=== PATIENT | male | born 1945 | race Caucasian/White ===

== ENCOUNTER 2020-05-14 07:54 | Inpatient (IN) ==
--- NOTE | 2020-05-10 15:54 | Anesthesiology Consultation ---
Date of Service May 10, 2020 Assessment & Plan (1) Encounter for pre-operative examination: - Per assessment on 04/24: Travel screen negative. No known COVID-19 positive contacts or current COVID-19 related symptoms. Patient had preop COVID test (surgeon's office). Awaiting results. - Check BSG AM DOS - Cardiology office visit: 04/26/20: "No significant coronary artery disease history, without cardiopulmonary limitations and can easily complete greater than 4 METS activity without restrictions. May proceed with procedure as planned without further testing as this would not reduce his risk which is estimated at 1 to 3%. Discontinue Eliquis 48 to 72 hours prior to procedure and resume postoperatively as soon as deemed safe to do so." Chart Review Chart Review: Acceptable Risk for Surgery and Patient NOT seen in Pre Admission Testing History Surgery Operation Date: 05/14/20 09:35 Proposed Procedures p T10-T12 Decompression Fusion, L1 Removal of Screws, Spinal Cord Monitoring - Ja Mitchell DO Height/Weight Height: 5 ft 8 in Weight: 110.223 kg Allergies Allergy/AdvReac Type Severity Reaction Status Date / Time No Known Allergies Allergy Verified 04/24/20 13:14 Medications Home Medications Medication Instructions Recorded Confirmed Last Taken amiodarone 200 mg PO BID 04/24/20 04/24/20 Unknown apixaban [Eliquis] 5 mg PO BID 04/24/20 04/24/20 Unknown ascorbic acid (vitamin C) [Vitamin 1 g PO BID 04/24/20 04/24/20 Unknown C] atorvastatin 10 mg PO HS 04/24/20 04/24/20 Unknown baclofen 10 mg PO DAILY PRN 04/24/20 04/24/20 Unknown calcium carbonate-vitamin D3 1 tab PO BID 04/24/20 04/24/20 Unknown [Calcium + D] finasteride 5 mg PO QAM 04/24/20 04/24/20 Unknown furosemide 20 mg PO QAM 04/24/20 04/24/20 Unknown gabapentin 300 mg PO HS 04/24/20 04/24/20 Unknown glipizide 7.5 mg PO QAM 04/24/20 04/24/20 Unknown lisinopril 2.5 mg PO QAM 04/24/20 04/24/20 Unknown loratadine 10 mg PO QAM 04/24/20 04/24/20 Unknown metformin 1,000 mg PO BID 04/24/20 04/24/20 Unknown metoprolol succinate 50 mg PO QAM 04/24/20 04/24/20 Unknown montelukast [Singulair] 10 mg PO PM 04/24/20 04/24/20 Unknown multivitamin 1 tab PO QAM 04/24/20 04/24/20 Unknown omega 9-nqa-sls-fish oil [Fish Oil] 1 cap PO BID 04/24/20 04/24/20 Unknown tamsulosin 0.4 mg PO QAM 04/24/20 04/24/20 Unknown Past Medical History Medical History (Updated 05/10/20 @ 15:50 by Alexia Martinez) Atrial fibrillation s/p cardioversion 03/2020, on Eliquis, follows with Dr. Gallardo ([facility], [facility]), sinus rhythm per 04/09/20 EKG BPH (benign prostatic hyperplasia) Chronic back pain Degenerative disc disease Diabetes mellitus, type 2 NIDDM Hyperlipidemia Hypertension Past Surgical History Surgical History Fusion of spine lumbar x2 History of cardioversion 03/2020 History of colonoscopy History of tooth extraction History of transesophageal echocardiography (CYNTHIA) 03/2020 Social History Smoking Status: Never smoker Do You Dip or Chew Tobacco: No Hx Alcohol Use: Yes Alcohol type: beer alcohol intake frequency: a few times a month Hx Substance Use: No substance use type: does not use Testing Laboratory Results 04/09/20 WBC 7.13 H/H 16.0/46.5 PLATELETS 203 SODIUM 143 POTASSIUM 4.2 CHLORIDE 109 CO2 27 BUN 16 CREATININE 0.95 GLUCOSE 63 PT 11.0 INR 1.0 Electrocardiogram Date: 04/09/20 SR with first degree AVB at 62bpm. Low voltage QRS. No significant change compared to 06/21/2014 per surface plate inspector review. Chest X-Ray Date: 04/09/20 FINDINGS: The cardiac and mediastinal contours are normal. There is no evidence of focal pulmonary consolidation. There is no evidence of failure. No pleural effusions are visualized.[Degenerative postsurgical changes are present within the cervical spine IMPRESSION: No active disease in the chest. Echocardiogram Date: 03/20/20 Per report this CYNTHIA was performed prior to elective cardioversion. EF 55 to 60%. Mild MR. Mild TR. Mild IN. Mild LAD.
[~2020-05-14 07:54] MED LIST: ACETAMINOPHEN 500 MG TAB PO SCH; CeleBREX 200 MG CAP PO SCH; GABAPENTIN 300 MG CAP PO SCH; LR 15ML/HR IV SCH; ceFAZolin 2000MG 2,000 MG/15 ML SYR IV SCH
[2020-05-14] MEDS ORDERED: fentaNYL citrate 100 MCG/2 ML VIAL ONE ×2 (09:52→11:51)
[2020-05-14] MEDS ORDERED: MIDAZOLAM HCL 1 MG/ML 2ML VIAL ONE (09:52)
[2020-05-14] MEDS ORDERED: ONDANSETRON INJ 2 MG/ML 2 ML VIAL IV PRN ×2 (10:10→14:34)
[2020-05-14] MEDS ORDERED: ATROPINE SULFATE 0.1 MG/ML 10ML SYR IV PRN (10:10)
[2020-05-14] MEDS ORDERED: LABETALOL HCL IV 5 MG/ML 20ML IV PRN (10:10)
--- NOTE | 2020-05-14 10:15 | History & Physical Bridge Note ---
Date of Service May 14, 2020 History & Physical Bridge Note I have examined the patient, reviewed the History & Physical and in the interval since the performance of the History & Physical I have noted the following changes of clinical significance: no changes noted
--- NOTE | 2020-05-14 10:17 | History & Physical Report ---
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 After failing course of nonoperative care is here for surgical intervention. Allergies Allergy/AdvReac Type Severity Reaction Status Date / Time No Known Allergies Allergy Verified 05/14/20 08:35 Home Medications Home Medications Medication Instructions Recorded Confirmed Type amiodarone 200 mg PO BID 04/24/20 05/14/20 History apixaban [Eliquis] 5 mg PO BID 04/24/20 05/14/20 History ascorbic acid (vitamin C) [Vitamin 1 g PO BID 04/24/20 05/14/20 History C] atorvastatin 10 mg PO HS 04/24/20 05/14/20 History baclofen 10 mg PO DAILY PRN 04/24/20 05/14/20 History calcium carbonate-vitamin D3 1 tab PO BID 04/24/20 05/14/20 History [Calcium + D] finasteride 5 mg PO QAM 04/24/20 05/14/20 History furosemide 20 mg PO QAM 04/24/20 05/14/20 History gabapentin 300 mg PO HS 04/24/20 05/14/20 History glipizide 7.5 mg PO QAM 04/24/20 05/14/20 History lisinopril 2.5 mg PO QAM 04/24/20 05/14/20 History loratadine 10 mg PO QAM 04/24/20 05/14/20 History metformin 1,000 mg PO BID 04/24/20 05/14/20 History metoprolol succinate 50 mg PO QAM 04/24/20 05/14/20 History montelukast [Singulair] 10 mg PO PM 04/24/20 05/14/20 History multivitamin 1 tab PO QAM 04/24/20 05/14/20 History omega 2-dpe-sgs-fish oil [Fish Oil] 1 cap PO BID 04/24/20 05/14/20 History tamsulosin 0.4 mg PO QAM 04/24/20 05/14/20 History Past Med/Surg History Medical History (Updated 05/14/20 @ 10:16 by Ja Mitchell, DO) Atrial fibrillation s/p cardioversion 03/2020, on Eliquis, follows with Dr. Gallardo ([facility], [facility]), sinus rhythm per 04/09/20 EKG BPH (benign prostatic hyperplasia) Chronic back pain Degenerative disc disease Diabetes mellitus, type 2 NIDDM Hyperlipidemia Hypertension Surgical History Fusion of spine lumbar x2 History of cardioversion 03/2020 History of colonoscopy History of tooth extraction History of transesophageal echocardiography (CYNTHIA) 03/2020 Social History Smoking Status: Never smoker Second Hand Exposure: No; Do You Dip or Chew Tobacco: No; Tobacco Cessation Education Requested by Patient: No Hx Alcohol Use: Yes Alcohol type: beer Hx Substance Use: No Preferred Language: Martiniquais Communication Ability: Effective Dining Service Inspector Required: No Beliefs That Will Affect Care: None Current Living Situation: Spouse Other Information That Helps Us Care for You: No Feels Safe at Home: Yes Safety Concerns: Feels Safe At This Time Assistive Devices: Glasses and Hearing Aid - Bilateral Physical Exam Physical Exam: Patient is alert and oriented Heart regular in rhythm Lungs clear to auscultation Results & Data ([facility]) Vital Signs (Past 12 Hours) Vital Signs Temp Pulse Resp BP Pulse Ox 05/14/20 08:37 36.8 C 59 L 20 148/88 H 97
[2020-05-14] MEDS ORDERED: BACITRACIN INJ 50,000 UNIT VIAL ONE (10:39)
[2020-05-14] MEDS ORDERED: BUPIVACAINE/EPINEPHRINE 0.25% 1:200,000 30 ML VIAL ONE (10:39)
[2020-05-14] MEDS ORDERED: PROPOFOL IV EMULSION 10 MG/ML 20 ML VIAL IV ONE (11:31)
[2020-05-14] MEDS ORDERED: LIDOCAINE HCL 2% 2 ML VIAL/AMP(20MG/ML) INFIL ONE (11:31)
[2020-05-14] MEDS ORDERED: ONDANSETRON INJ 2 MG/ML 2 ML VIAL ONE (11:32)
[2020-05-14] MEDS ORDERED: DEXAMETHASONE SOD INJ 4 MG/ML VIAL ONE (11:32)
[2020-05-14] MEDS ORDERED: ROCURONIUM BROMIDE 10 MG/ML 5 ML VIAL IV ONE (11:32)
[2020-05-14] MEDS ORDERED: FLOSEAL HEMOSTATIC MATRIX 10ML TOP ONE (11:45)
[2020-05-14] MEDS ORDERED: NEOSTIGMINE METHYLSULFATE 1 MG/ML 10ML VIAL ONE (11:53)
[2020-05-14] MEDS ORDERED: GLYCOPYRROLATE 0.2 MG/ML VIAL ONE (11:53)
[2020-05-14] MEDS ORDERED: ePHEDrine sulfate 50 MG/ML AMP ONE (12:45)
--- NOTE | 2020-05-14 13:03 | Operative Report ---
Post Operative Report Pre & Post Diagnosis Operation Date: 05/14/20 09:35 Pre-Op Diagnosis: Other Spondylosis with Myelopathy, Thorcic Region Post-Op Diagnosis: Other Spondylosis with Myelopathy, Thorcic Region I identified the patient and participated in the time-out.: Yes Procedure Operation Date: 05/14/20 09:35 Actual T10-L2. #4 placement posterior instrumentation Procedures #1 removal of posterior instrumentation L1. #2 lumbar decompression with bilateral medial facetectomies T10 T8 11, T11-T12, T12-L1. #3 posterior spinal fusion T10-L2. #4 placement posterior instrumentation T10-T12 with barrel connectors. #5 placement locally harvested morselized autograft in the posterior gutters. #6 placement infuse collagen sponge, master graft from T10- L2. Surgeon Ja Mitchell, DO School Photographs Detailer Elma Ignacio Estimated Blood Loss 300 Findings See Below The patient is 5 foot 8 inches tall weighing over 108 kg with a BMI in excess of 36. Patient's body habitus did add significant technical difficulty adding at least 50% increase to the operative time. Specimens None Indications This is a 74-year-old male who presents with progressive thoracic myelopathy and is here for the above-mentioned procedure. Description of Procedure Patient was met with identified informed consent obtained. Patient was then taken to the operative suite underwent an patient placed in the prone position the Ramy table atop the Delio frame. All bony prominences well-padded eyes inspected to ensure no external pressure placed upon the. This point the thoracolumbar spine was prepped and draped in normal sterile fashion. Sharp dissection with the assistance of Bovie cautery was performed down to and exposing the lamina and transverse processes of [id number] L1 and L2 bilaterally. Then proceeded move the connector and pedicle screw of L1. Then performed a laminectomy bilateral medial facetectomies of T10-T11 T10-11 T12 and T12-L1. This address significant stenosis. Pedicle screws were then placed in [id number] the proper sized gautam placed connected with barrel connectors to the existing gautam. The transverse processes of T10-L2 were then burred to subcortical bleeding bone. Infuse collagen sponge and master graft local autograft was then placed in the posterior gutters. 15 round JOE drain inserted. Incision was closed with 1 Vicryl the fascia 2-0 Vicryl subcutaneously and 4 Monocryl for final skin closure. Steri-Strips dressings placed. Patient waken taken to PACU stable condition. Please note spinal cord monitoring was last that the procedure no changes noted. Yolanda Ignacio was present for the entire surgery involved the patient positioning complex portions of the surgery and final skin closure. I attest to the content of the Intraoperative Record and any orders documented therein. Any exceptions are noted below.
--- NOTE | 2020-05-14 13:24 | Fluoroscopy Report ---
FL thoracic spine 2V CLINICAL HISTORY: T10-T12 DECOMPRESSION/FUSION COMPARISON STUDY: None. FLUOROSCOPY TIME: 35 seconds. FINDINGS: 2 fluoroscopic spot images of the thoracolumbar spine. T10-T12 posterior decompression fusi on with pedicle screws and rods. These are attached the existing lumbar spinal fusion rods. The hardw are appears intact. IMPRESSION: Fluoroscopy provided for T10-T12 posterior decompression and fusion. ACT 112: Negative or not required by law. Electronically signed by: Calin Covarrubias M.D. 05/14/2020 1:23 PM
[2020-05-14] MEDS: HYDROmorphone INJ 1 MG/ML SYRINGE IV PRN ×4 (13:32→13:47)
--- NOTE | 2020-05-14 13:59 | Anesthesiology Progress Note ---
Date of Service May 14, 2020 Anesthesia Post Procedure Vital Signs Vital Signs: Temp Pulse Pulse Resp BP BP Pulse Ox 05/14/20 13:50 36.4 C L 63 16 101/71 98 05/14/20 13:40 65 14 117/56 L 97 05/14/20 13:30 71 16 136/74 98 05/14/20 13:22 36.2 C L 69 14 160/85 H 98 05/14/20 08:37 36.8 C 59 L 20 148/88 H 97 Pain Intensity Right: Pain Intensity: 2 Back: Pain Intensity: 2 Transfer of Care Handoff Completed per policy Notes Mental Status: alert / awake / arousable Patient Amnestic to Procedure: Yes Nausea / Vomiting: adequately controlled Pain: adequately controlled Airway Patency, RR, SpO2: stable & adequate BP & HR: stable & adequate Hydration State: stable & adequate Anesthetic Complications: no major complications apparent
[2020-05-14] MEDS ORDERED: diphenhydrAMINE Capsule 25 MG CAP PO PRN (14:34)
[2020-05-14] MEDS ORDERED: METOCLOPRAMIDE HCL INJ 5 MG/ML 2 ML VIAL IV PRN (14:34)
[2020-05-14] MEDS ORDERED: ALUMINUM/MAGNESIUM SUSP 30 ML UDC PO PRN (14:34)
[2020-05-14] MEDS ORDERED: HYDROmorphone INJ 1 MG/ML SYRINGE IV PRN (14:34)
[2020-05-14] MEDS ORDERED: ACETAMINOPHEN 500 MG TAB PO PRN (14:34)
[2020-05-14] MEDS ORDERED: NALOXONE HCL 0.4 MG/1 ML VIAL/CARP IV PRN (14:34)
[2020-05-14] MEDS ORDERED: LORazepam 0.5 MG TAB PO PRN (14:34)
[2020-05-14] MEDS ORDERED: MAGNESIUM HYDROXIDE SUSP 30 ML UDC PO PRN (14:34)
[2020-05-14] MEDS ORDERED: hydrOXYzine HCl 25 MG TAB PO PRN (14:34)
[2020-05-14] MEDS ORDERED: PROMETHAZINE HCL 12.5 MG in SODIUM CHLORIDE 0.9% 50 ML IV PRN (14:34)
[2020-05-14] MEDS ORDERED: LORazepam 0.5 MG/1 ML VIAL IV PRN (14:34)
[2020-05-14] MEDS ORDERED: DO NOT ADMINISTER PNEUMOCOCCAL VACCINE PRN (14:34)
[2020-05-14] MEDS ORDERED: DO NOT ADMINISTER FLU VACCINE PRN (14:34)
[2020-05-14] MEDS ORDERED: ACETAMINOPHEN 1,000 MG/100 ML VIAL IV PRN (14:34)
[2020-05-14] MEDS ORDERED: bisacodyL 10 MG SUPP PR PRN (14:34)
[2020-05-14] MEDS ORDERED: HYDROmorphone INJ 0.5 MG/0.5 ML SYR IV PRN (14:34)
[2020-05-14] MEDS ORDERED: ONDANSETRON 4 MG OD TAB PO PRN (14:34)
[2020-05-14] MEDS ORDERED: traMADol HCL 50 MG TABLET PO PRN (14:34)
[2020-05-14] MEDS ORDERED: SOD PHOSPHATE/SOD BIPHOSPHATE ENEMA 132 ML BTL PR PRN (14:34)
[2020-05-14] MEDS ORDERED: BACLOFEN 10 MG TAB PO PRN (14:34)
[2020-05-14] MEDS ORDERED: FAMOTIDINE 20 MG TAB PO PRN (14:34)
[2020-05-14] MEDS: SODIUM CHLORIDE 0.9% 1000ML 1,000 ML IV SCH ×2 (14:42→21:57)
[2020-05-14] MEDS ORDERED: PHARMACY GLYCEMIC MGMT CONSULT PRN (14:44)
[2020-05-14] MEDS ORDERED: NovoLIN-N (NPH) PER UNIT CHARGE SQ ONE (15:00)
--- NOTE | 2020-05-14 15:00 | Pharmacy Report ---
Glycemic Control Consultation - Date of Service May 14, 2020 - Scope Scope: Glycemic Pharmacist consulted for glycemic control and to write orders per [facility] inpatient glycemic control protocol. - Objective Weight: 108.4 kg Accuchecks BSG (last 24hrs): 05/14/20 05/14/20 08:27 13:26 POC Glucose 150 H 164 H - Recent Pertinent Medications Outpatient Anti-diabetic Regimen: * Metformin 1000 mg PO BIDM + Glipizide 7.5 mg PO qAM * A1c = pending Risk Factors for Insulin Resistance: * Steroids: * Dexamethasone 8 mg IV x 1 * Recent Surgery: * POD #0 * Diet: * T2DM - Assessment & Plan Assessment & Plan: ASSESSMENT: * 74 yo M admitted s/p T10-T12 decompression and fusion. Pharmacy is consulted for inpatient glycemic management. No HbA1c on file for patient. I have ordered one for tomorrow morning to assess his outpatient control of T2DM on Metformin and Glipizide. * Preoperative BSG was 150 mg/dL. Postoperative BSG was 164 mg/dL. * Patient did receive a one time dose of dexamethasone intra-operative. This will likely cause post-prandial hyperglycemia over the next 24 hours. * Will give a one time dose of NPH 25 units right now (0.25 units/kg) * Will start patient on Novolog based on a weight and stress of 2. PLAN FOR INPATIENT GLYCEMIC CONTROL: * Holding outpatient oral diabetes medications * Basal insulin * NPH 25 units SQ x 1 (0.25 units/kg) * Bolus insulin * NovoLog per scale ACHS or Q6hrs while NPO * Goal Range: Low 110 mg/dL - High 140 mg/dL * Correction Factor: 20 mg/dL/unit * Nutritional / Prandial insulin per carb ratio of 1 unit per 7 grams CHO consumed * Please note that the plan above was derived based on current level of insulin resistance and hospital stress. These recommendations are appropriate for inpatient admission only. Plan of care upon discharge will need to be reassessed to avoid potential outpatient hypo/hyperglycemia. Thank you.
[2020-05-14] MEDS: oxyCODONE HCL IR 5 MG TAB (IMMEDIATE RELEASE) PO PRN (15:53)
[2020-05-14] MEDS ORDERED: GLUCOSE 10 TABS/TUBE PO PRN (16:09)
[2020-05-14] MEDS ORDERED: GLUCAGON FOR INJ 1 MG VIAL SQ PRN (16:09)
[2020-05-14] MEDS ORDERED: CARBOHYDRATES FOR HYPOGLYCEMIA PO PRN (16:09)
[2020-05-14] MEDS ORDERED: DEXTROSE 50% 50 ML SYRINGE IV PRN (16:09)
[2020-05-14] MEDS ORDERED: GLUCOSE 40% GEL 15 GM TUBE PO PRN (16:09)
--- NOTE | 2020-05-14 16:14 | Consultation ---
Date of Consultation May 14, 2020 Assessment & Plan (1) Myelopathy concurrent with and due to spinal stenosis of thoracic region: Status post T10-[address] Mitchell, POD #0 EBL 300 mL, JOE drain to 240 mL Patient tolerated procedure well Pain/wound management per Ortho Activity and therapy as directed by Ortho Encourage incentive spirometry, maintaining oxygen saturations on room air Monitor H&H (2) Atrial fibrillation: Status post cardioversion, maintained sinus rhythm Continue amiodarone Resume Eliquis at the discretion of Dr. Mitchell when hemostasis achieved (3) Diabetes mellitus, type 2: Unknown A1c, obtain in a.m. Glycemic pharmacy on board Appreciate their management (4) Hypertension: Blood pressure stable Continue metoprolol and lisinopril with parameters Hold Lasix until volume status blood pressure reassessed in a.m. -patient states he takes for lower extremity edema, denies history of CHF (5) Hyperlipidemia: Continue statin (6) BPH (benign prostatic hyperplasia): Continue finasteride and Flomax Verma catheter in place, removed per surgery (7) DVT prophylaxis: SCD/teds Disposition: Per primary Follow-up: PCP Dr. Ramos upon discharge Pt was seen and examined in collaboration with Dr. Mcfarland, please see addendum Starting 05/15/2020 pt will be under the care of Dr. Cole Thank you for this consultation. We will follow the patient with you during their hospital stay. You can reach a [facility] via pager @ [phone]. Supervising Physician Co-Signing Physician Notes Attending Addendum: care coordinated with ALONZO Ivey please refer to her notes for full details, I agree with her notes patient seen and examined, records reviewed by myself as well on exam, patient seen resting in bed, comfortable, watching TV States he feels fine overall, minimal pain in the surgical site Denies headache, dizziness, chest pain, shortness of breath, palpitations, dizziness no other symptoms VS noted and reviewed oriented x 3, not in distress, speaks in sentences with no effort nor accessory muscle use normal rate, regular rhythm, no murmurs clear breath sounds bilaterally non distended, soft, nontender no bipedal edema, erythema, warmth no neuro deficits ASSESSMENT AND PLAN Status post lumbar decompression surgery Patient stable overall Resume Eliquis per Dr. Mitchell once hemostasis is stable Atrial fibrillation Continue amiodarone Resume Eliquis per Dr. Mitchell Hypertension Stable Continue metoprolol and lisinopril Hold Lasix other diagnoses and plan of care as per ALONZO Ibarra's notes Laron Mcfarland MD History of Present Illness Requesting Physician: Dr. Mitchell. Reason for Consultation: Postop medical management Attending Physician: Ja Mitchell, DO History of Present Illness This is a 74-year-old male who has significant past medical history of T2DM, atrial fibrillation anticoagulated on Eliquis, HTN, HLD, BPH who presents for elective thoracic procedure by Dr. Mitchell. He underwent T10-12 decomp/fusion and tolerated the procedure well. He is from [facility] and follows with Marysol Ramos. He has significant past medical history of atrial fibrillation status post cardioversion. He remains in normal sinus rhythm with amiodarone. He is anticoagulated with Eliquis, but this has been on hold for the past 3 days. He also has history of T2DM that is controlled with oral hypoglycemics. No A1C is available for review. Currently post op he feels well. He denies fever, chills, sweats, lightheadedness, dizziness, chest pain, shortness breath, nausea vomiting, abd pain. He has Verma cath currently in place. We discussed and confirmed medications. He states he takes lasix for lower ext swelling, but denies hx of CHF. Allergies Allergy/AdvReac Type Severity Reaction Status Date / Time No Known Allergies Allergy Verified 05/14/20 08:35 Home Medications Home Medications Medication Instructions Recorded Confirmed Type amiodarone 200 mg PO BID 04/24/20 05/14/20 History apixaban [Eliquis] 5 mg PO BID 04/24/20 05/14/20 History ascorbic acid (vitamin C) [Vitamin 1 g PO BID 04/24/20 05/14/20 History C] atorvastatin 10 mg PO HS 04/24/20 05/14/20 History baclofen 10 mg PO DAILY PRN 04/24/20 05/14/20 History calcium carbonate-vitamin D3 1 tab PO BID 04/24/20 05/14/20 History [Calcium + D] finasteride 5 mg PO QAM 04/24/20 05/14/20 History furosemide 20 mg PO QAM 04/24/20 05/14/20 History gabapentin 300 mg PO HS 04/24/20 05/14/20 History glipizide 7.5 mg PO QAM 04/24/20 05/14/20 History lisinopril 2.5 mg PO QAM 04/24/20 05/14/20 History loratadine 10 mg PO QAM 04/24/20 05/14/20 History metformin 1,000 mg PO BID 04/24/20 05/14/20 History metoprolol succinate 50 mg PO QAM 04/24/20 05/14/20 History montelukast [Singulair] 10 mg PO PM 04/24/20 05/14/20 History multivitamin 1 tab PO QAM 04/24/20 05/14/20 History omega 0-dfd-skj-fish oil [Fish Oil] 1 cap PO BID 04/24/20 05/14/20 History tamsulosin 0.4 mg PO QAM 04/24/20 05/14/20 History Patient History Medical History (Updated 05/14/20 @ 16:35 by Debbie Hernandez PA-C) Atrial fibrillation s/p cardioversion 03/2020, on Eliqu, follows with Dr. Gallardo ([facility], [facility]), sinus rhythm per 04/09/20 EKG BPH (benign prostatic hyperplasia) Chronic back pain Degenerative disc disease Diabetes mellitus, type 2 NIDDM Hyperlipidemia Hypertension Surgical History Fusion of spine lumbar x2 History of cardioversion 03/2020 History of colonoscopy History of tooth extraction History of transesophageal echocardiography (CYNTHIA) 03/2020 Family History Father Pacemaker Mother Cancer Social History (Updated 05/14/20 @ 16:28 by Debbie Hernandez PA-C) Smoking Status: Never smoker Second Hand Exposure: No; Do You Dip or Chew Tobacco: No; Tobacco Cessation Education Requested by Patient: No Hx Alcohol Use: No Hx Substance Use: No Preferred Language: Spanish Communication Ability: Effective 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: No Beliefs That Will Affect Care: None Current Living Situation: Spouse Other Information That Helps Us Care for You: No Feels Safe at Home: Yes Safety Concerns: Feels Safe At This Time Assistive Devices: Glasses and Hearing Aid - Bilateral Review of Systems Review of Systems: All systems reviewed & are unremarkable except as noted in HPI & below Physical Exam Physical Exam: Constitutional: WD/WN, vitals as above, NAD, sitting up in bed, pleasant, conversing easily Head: Normocephalic, Atraumatic Eyes: PERRL, conjunctivae normal, anicteric sclerae ENMT: external ear and nose normal, oropharynx normal Neck: trachea midline, no thyromegaly normal visual inspection Respiratory: normal respiratory effort, lungs clear to auscultation, no wheeze, rales, rhonchi. Normal insp/exp effort, no accessory muscle use Cardiovascular: RRR, no murmur, trace pedal edema Vessels: no JVD or carotid bruit Chest: normal inspection of chest Abdomen: protuberant abd, normal bowel sounds, soft, nontender, no hepatosplenomegaly Musculoskeletal: no cyanosis or clubbing, active ROM x 4, lumbar dressing CDI with JOE drain intact with sersang drainage Skin: no rashes, warm and dry normal turgor Neurologic: PERRL, EOMI, accommodation nl, no face palsy, no dysarthria CN's II-XI intact bilaterally and moves all extremities Psychiatric: A+Ox3, euthymic affect Lymphatic: no cervical or axillary lymphadenopathy : +verma cath draining yellow urine Results & Data ([facility]) Vital Signs (Past 12 Hours) Vital Signs Temp Pulse Pulse Resp BP BP Pulse Ox 05/14/20 15:30 36.5 C 61 17 110/66 95 05/14/20 14:21 36.5 C 59 L 16 114/71 96 05/14/20 14:00 61 17 117/75 96 05/14/20 13:50 36.4 C L 63 16 101/71 98 05/14/20 13:40 65 14 117/56 L 97 05/14/20 13:30 71 16 136/74 98 05/14/20 13:22 36.2 C L 69 14 160/85 H 98 05/14/20 08:37 36.8 C 59 L 20 148/88 H 97 Laboratory Results pre op labs 04/09 H&H 16.0 from 6.5, platelet 203, BUN 16, creatinine 0.95 Diagnostic Findings Thoracic Spine Xray: IMPRESSION: Fluoroscopy provided for T10-T12 posterior decompression and fusion. CXR: IMPRESSION: No active disease in the chest Medications Administered Acetaminophen (Acetaminophen 500 Mg Tab) 1,000 mg PO PREOP MUNDO Stop: 05/14/20 18:00 Last Admin: 05/14/20 08:50 Dose: 1,000 mg Documented by: [id number] Celecoxib (Celebrex 200 Mg Cap) 200 mg PO PREOP MUNDO Stop: 05/14/20 18:00 Last Admin: 05/14/20 08:50 Dose: 200 mg Documented by: [id number] Gabapentin (Gabapentin 300 Mg Cap) 300 mg PO PREOP MUNDO Stop: 05/14/20 18:00 Last Admin: 05/14/20 08:50 Dose: 300 mg Documented by: [id number] Cefazolin Sodium (Ancef 2000mg) 2,000 mg in 15 mls @ 3.75 mls/min IV PREOP MUNDO; Protocol Stop: 05/14/20 18:00 Last Admin: 05/14/20 10:53 Dose: 3.75 mls/min Documented by: [id number] Lactated Ringer's (Lr) 1,000 mls @ 15 mls/hr IV .Q24H MUNDO Stop: 05/15/20 05:59 Last Infusion: 05/14/20 10:53 Dose: 0 mls/hr Documented by: [id number] Admin: 05/14/20 08:50 Dose: 15 mls/hr Documented by: [id number] Sodium Chloride (Nss 1000ml) 1,000 mls @ 150 mls/hr IV .Q6H40M MUNDO Stop: 06/13/20 14:33 Last Admin: 05/14/20 14:42 Dose: 150 mls/hr Documented by: [id number] Oxycodone HCl (Oxycodone Hcl Ir 5 Mg Tab (Immediate Release)) 5 - 10 mg PO Q4H PRN PRN Reason: Moderate-Severe Pain & Pre PT Stop: 05/28/20 14:33 Last Admin: 05/14/20 15:53 Dose: 10 mg Documented by: [id number] Discontinued Medications Bacitracin (Bacitracin Inj 50,000 Unit Vial) Confirm Administered Dose 50,000 units .ROUTE .STK-MED ONE Stop: 05/14/20 10:40 Last Admin: 05/14/20 12:56 Dose: 50,000 units Documented by: [id number] Bupivacaine HCl/Epinephrine Bitart (Bupivacaine/Epinephrine 0.25% 1:200,000 30 Ml Vial) Confirm Administered Dose 30 ml .ROUTE .STK-MED ONE Stop: 05/14/20 10:40 Last Admin: 05/14/20 12:56 Dose: 30 ml Documented by: [id number] Hydromorphone HCl (Hydromorphone Inj 1 Mg/Ml Syringe) 0.25 mg IV Q5M PRN PRN Reason: PACU Use Only-Pain Stop: 05/14/20 18:10 Last Admin: 05/14/20 13:47 Dose: 0.25 mg Documented by: [id number] Admin: 05/14/20 13:42 Dose: 0.25 mg Documented by: [id number] Admin: 05/14/20 13:37 Dose: 0.25 mg Documented by: [id number] Admin: 05/14/20 13:32 Dose: 0.25 mg Documented by: [id number] Insulin Human NPH (Novolin-N (Nph) Per Unit Charge) 25 units SQ ONE ONE; Protocol Stop: 05/14/20 15:01 Last Admin: 05/14/20 16:02 Dose: 25 units Documented by: [id number] Cosigned by: [id number] Miscellaneous ( Floseal Hemostatic Matrix 10ml) 30 ml TOP ONCE ONE Stop: 05/14/20 11:46 Last Admin: 05/14/20 12:56 Dose: 24 ml Documented by: [id number] ECG Rate (beats per minute): 62 Rhythm: normal sinus Findings: + 1st degree AV block
[2020-05-14] MEDS: ceFAZolin 2000MG 2,000 MG/15 ML SYR IV SCH (17:36)
[2020-05-14] MEDS: INSULIN ASPART 100 UNITS/ML 3 ML PEN SC SCH ×2 (18:32→20:39)
[2020-05-14] MEDS: GABAPENTIN 300 MG CAP PO SCH (20:26)
[2020-05-14] MEDS: AMIODARONE 200 MG TAB PO SCH (20:26)
[2020-05-14] MEDS: ASCORBIC ACID 500 MG TAB PO SCH (20:27)
[2020-05-14] MEDS: ATORVASTATIN 10 MG TAB PO SCH (20:27)
[2020-05-14] MEDS: DOCUSATE SODIUM/SENNA 50/8.6MG TAB PO SCH (20:27)
[2020-05-14] MEDS: CALCIUM 600MG + VIT D 400 IU TAB PO SCH (20:27)
[2020-05-14] MEDS: MONTELUKAST SODIUM 10 MG TABLET PO SCH (20:27)
[2020-05-15] MEDS: ceFAZolin 2000MG 2,000 MG/15 ML SYR IV SCH (02:23)
[2020-05-15] MEDS: SODIUM CHLORIDE 0.9% 1000ML 1,000 ML IV SCH (05:17)
[2020-05-15] MEDS: POLYETHYLENE (MIRALAX) 17 GM PACK PO SCH ×3 (05:52→17:34)
[2020-05-15] MEDS: oxyCODONE HCL IR 5 MG TAB (IMMEDIATE RELEASE) PO PRN ×2 (05:52→14:49)
[2020-05-15 07:09] LABS: Basophils # (auto) 0.01 K/uL (0-0.2); Basophils % (auto) 0.1 %; Hematocrit (blood only) 38.4 % (42-52); Hemoglobin 13.2 g/dL (14.0-18.0); Immature Granulocytes # (auto) 0.07 K/uL (0.00-0.02); Immature Granulocytes % (auto) 0.4 %; Lymphocytes # (auto) 1.31 K/uL (1.2-3.4); Lymphocytes % (auto) 8.2 %; Mean Corpuscular Hemoglobin 32.4 pg (25-34); Mean Corpuscular Hgb Conc 34.4 g/dL (32-36); Mean Corpuscular Volume 94.3 fL (80-100); Mean Platelet Volume 10.9 fL (7.4-10.4); Monocytes # (auto) 1.12 K/uL (0.11-0.59); Neutrophils # (auto) 13.39 K/uL (1.4-6.5); Neutrophils % (auto) 84.3 %; Platelet Count 178 K/uL (130-400); RDW Coefficient of Variation 12.9 % (11.5-14.5); RDW Standard Deviation 44.4 fL (36.4-46.3); Red Blood Count 4.07 M/uL (4.7-6.1)
[2020-05-15 07:18] LABS: Estimated Average Glucose 154 mg/dl
[2020-05-15 07:41] LABS: BUN Creatinine Ratio 16.2 (10-20); Calcium 8.1 mg/dl (8.5-10.1); Creatinine Clr Calc Pharmacy 64.9 ml/min; Est GFR (African American) 68.4; Potassium 4.7 mmol/L (3.5-5.1)
[2020-05-15] MEDS: CALCIUM 600MG + VIT D 400 IU TAB PO SCH ×2 (08:11→20:46)
[2020-05-15] MEDS: METOPROLOL SUCC 50MG EXT REL TAB PO SCH (08:11)
[2020-05-15] MEDS: FINASTERIDE 5 MG TAB PO SCH (08:11)
[2020-05-15] MEDS: LORATADINE 10 MG TAB PO SCH (08:11)
[2020-05-15] MEDS: MULTIVITAMIN TAB PO SCH (08:11)
[2020-05-15] MEDS: ASCORBIC ACID 500 MG TAB PO SCH ×2 (08:11→20:46)
[2020-05-15] MEDS: AMIODARONE 200 MG TAB PO SCH ×2 (08:11→20:46)
[2020-05-15] MEDS: lisinopril 2.5 MG TAB PO SCH (08:11)
[2020-05-15] MEDS: TAMSULOSIN HCL 0.4 MG CAP PO SCH (08:11)
--- NOTE | 2020-05-15 08:35 | Hospitalist Progress Note ---
Date of Service May 15, 2020 Assessment & Plan (1) Myelopathy concurrent with and due to spinal stenosis of thoracic region: Status post T10-[address] Mitchell, POD #1 EBL 300 mL, JOE drain to 560 mL Patient tolerated procedure well Pain/wound management per Ortho Activity and therapy as directed by Ortho Encourage incentive spirometry, maintaining oxygen saturations on room air Monitor H&H and renal function ( baseline ccr 0.9-1, cr 1.21 today) (2) Anemia: H&H 13.2 and 38.4 today Preoperative 16 Likely dilutional component as well as acute blood loss (3) Atrial fibrillation: Status post cardioversion, maintained sinus rhythm Continue amiodarone Resume Eliquis at the discretion of Dr. Mitchell when hemostasis achieved (4) Diabetes mellitus, type 2: A1C 7.0 Glycemic pharmacy on board Appreciate their management continue insulin (5) Hypertension: Blood pressure on low side this morning Continue metoprolol and lisinopril with parameters continue to hold lasix, assess volume status daily and resume when able patient states he takes for lower extremity edema, denies history of CHF, currently no edema (6) Hyperlipidemia: Continue statin (7) BPH (benign prostatic hyperplasia): Continue finasteride and Flomax Hook removed - having bloody drainage from tip of penis likely 2/2 to trauma from removal - monitor (8) DVT prophylaxis: SCD/teds Disposition: Per primary Follow-up: PCP Dr. Ramos upon discharge Pt was seen and examined in collaboration with Dr. Cole, please see addendum Thank you for this consultation. We will follow the patient with you during their hospital stay. You can reach a member of the [facility]ist Team 09/02 via pager @ [phone]. Admission and Anticipated Discharge Date Admission Date: May 14, 2020 Supervising Physician Co-Signing Physician Notes Pt was seen and examined. Agreed with Debbie ALEXANDER exam, assessment and plan. 74-year-old male who has significant past medical history of T2DM, atrial fibrillation anticoagulated on Eliquis, HTN, HLD, BPHwho presents for elective thoracic procedure by Dr. Mitchell after failed conservative management. S/P day#1 T10-12 decompression/fusion and tolerated the procedure well. No postop complication. Hemoglobin 13.6 today. Continue incentive spirometry. Continue physical and occupational therapy. Fall precaution. Continue monitor closely. MD Douglas Subjective Patient was seen and examined in room 311. Follow-up postop thoracic spine surgery. POD #1. He had Hook catheter removed this morning. Once catheter removed he did have some blood coming from tip of penis. "It all gushed out at once." Nurse at bedside placed Brief. Denies similar issues in past. Nursing felt likely secondary to trauma with withdrawal of catheter. He otherwise feels well this morning. He denies any fever, chills, sweats, lightheadedness, dizziness, chest pain, shortness of breath, nausea, vomiting, abdominal pain. He has not yet passed flatus. He is tolerating diet. Review of Systems Review of Systems: All systems reviewed & are unremarkable except as noted in HPI & below Physical Exam Physical Exam: Gen: WD/WN, male, NAD, A&O x3 HEENT: Normocephalic, atraumatic, conjunctivae moist, sclerae anicteric, mucous membranes moist. Lung: Clear to Auscultation bilaterally, no wheezes/rales/rhonchi Heart: Regular rate, regular rhythm, no murmurs, rubs, or gallops Abdomen: Soft, NT, ND +BS x 4 Extremities: No edema, lumbar dressing CDI, JOE drain with serosanguineous drainage Skin: Warm, no rash, negative turgor. Results & Data Results & Data ([facility]) Vital Signs (Past 12 Hours) Vital Signs Temp Pulse Resp BP Pulse Ox 05/15/20 07:19 37.1 C 76 18 106/71 98 05/15/20 04:21 37.3 C 83 20 98/64 L 94 05/14/20 23:00 37 C 79 20 99/66 L 94 05/14/20 20:30 72 128/72 Laboratory Results Short CBC 05/15/20 05/15/20 Range/Units 06:47 06:47 WBC 15.90 H (4.8-10.8) K/uL Hgb 13.2 L (14.0-18.0) g/dL Hct 38.4 L (42-52) % Plt Count 178 (130-400) K/uL Creatinine 1.21 (0.6-1.4) mg/dl BMP 05/15/20 06:47 Sodium 138 Potassium 4.7 Chloride 109 H Carbon Dioxide 27 BUN 20 H Creatinine 1.21 Glucose 224 H Calcium 8.1 L Medications Administered Amiodarone HCl (Amiodarone 200 Mg Tab) 200 mg PO BID [facility] Stop: 06/13/20 20:59 Last Admin: 05/15/20 08:11 Dose: 200 mg Documented by: [id number] Admin: 05/14/20 20:26 Dose: 200 mg Documented by: [id number] Ascorbic Acid (Ascorbic Acid 500 Mg Tab) 1,000 mg PO BID [facility] Stop: 06/13/20 20:59 Last Admin: 05/15/20 08:11 Dose: 1,000 mg Documented by: [id number] Admin: 05/14/20 20:27 Dose: 1,000 mg Documented by: [id number] Atorvastatin Calcium (Atorvastatin 10 Mg Tab) 10 mg PO HS [facility] Stop: 06/13/20 20:59 Last Admin: 05/14/20 20:27 Dose: 10 mg Documented by: [id number] Finasteride (Finasteride 5 Mg Tab) 5 mg PO QAM [facility] Stop: 06/14/20 08:59 Last Admin: 05/15/20 08:11 Dose: 5 mg Documented by: [id number] Gabapentin (Gabapentin 300 Mg Cap) [address] [facility] Stop: 06/13/20 20:59 Last Admin: 05/14/20 20:26 Dose: 300 mg Documented by: [id number] Hydromorphone HCl (Hydromorphone Inj 1 Mg/Ml Syringe) 1 mg IV Q3H PRN PRN Reason: severe pain (scale 7-10) Stop: 05/28/20 14:33 Last Admin: 05/14/20 18:44 Dose: 1 mg Documented by: [id number] Insulin Aspart (Insulin Aspart 100 Units/Ml 3 Ml Pen) 0 units SC ACHS [facility] Stop: 06/13/20 16:29 Last Admin: 05/14/20 20:39 Dose: 7 units Documented by: [id number] Cosigned by: [id number] Admin: 05/14/20 18:32 Dose: 10 units Documented by: [id number] Cosigned by: [id number] Lisinopril (Lisinopril 2.5 Mg Tab) 2.5 mg PO QAM [facility] Stop: 06/14/20 08:59 Last Admin: 05/15/20 08:11 Dose: 2.5 mg Documented by: [id number] Loratadine (Loratadine 10 Mg Tab) 10 mg PO QAM [facility] Stop: 06/14/20 08:59 Last Admin: 05/15/20 08:11 Dose: 10 mg Documented by: [id number] Metoprolol Succinate (Metoprolol Succ 50mg Ext Rel Tab) 50 mg PO QAM [facility] Stop: 06/14/20 08:59 Last Admin: 05/15/20 08:11 Dose: 50 mg Documented by: [id number] Montelukast Sodium (Montelukast Sodium 10 Mg Tablet) 10 mg PO PM [facility] Stop: 06/13/20 20:59 Last Admin: 05/14/20 20:27 Dose: 10 mg Documented by: [id number] Multivitamins (Multivitamin Tab) 1 tab PO QAM [facility] Stop: 06/14/20 08:59 Last Admin: 05/15/20 08:11 Dose: 1 tab Documented by: [id number] Multivitamins/Minerals (Calcium 600mg + Vit D 400 Iu Tab) 1 tab PO BID [facility] Stop: 06/13/20 20:59 Last Admin: 05/15/20 08:11 Dose: 1 tab Documented by: [id number] Admin: 05/14/20 20:27 Dose: 1 tab Documented by: [id number] Oxycodone HCl (Oxycodone Hcl Ir 5 Mg Tab (Immediate Release)) 5 - 10 mg PO Q4H PRN PRN Reason: Moderate-Severe Pain & Pre PT Stop: 05/28/20 14:33 Last Admin: 05/15/20 05:52 Dose: 10 mg Documented by: [id number] Admin: 05/14/20 15:53 Dose: 10 mg Documented by: [id number] Polyethylene Glycol (Polyethylene (Miralax) 17 Gm Pack) 17 gm PO Q6 [facility] Stop: 06/14/20 05:59 Last Admin: 05/15/20 05:52 Dose: 17 gm Documented by: [id number] Senna/Docusate Sodium (Docusate Sodium/Senna 50/8.6mg Tab) 2 tab PO HS [facility] Stop: 06/13/20 20:59 Last Admin: 05/14/20 20:27 Dose: 2 tab Documented by: [id number] Tamsulosin HCl (Tamsulosin Hcl 0.4 Mg Cap) 0.4 mg PO QAM [facility] Stop: 06/14/20 08:59 Last Admin: 05/15/20 08:11 Dose: 0.4 mg Documented by: [id number] Discontinued Medications Acetaminophen (Acetaminophen 500 Mg Tab) 1,000 mg PO PREOP [facility]UNDO Stop: 05/14/20 18:00 Last Admin: 05/14/20 08:50 Dose: 1,000 mg Documented by: [id number] Bacitracin (Bacitracin Inj 50,000 Unit Vial) Confirm Administered Dose 50,000 units .ROUTE .STK-MED ONE Stop: 05/14/20 10:40 Last Admin: 05/14/20 12:56 Dose: 50,000 units Documented by: [id number] Bupivacaine HCl/Epinephrine Bitart (Bupivacaine/Epinephrine 0.25% 1:200,000 30 Ml Vial) Confirm Administered Dose 30 ml .ROUTE .STK-MED ONE Stop: 05/14/20 10:40 Last Admin: 05/14/20 12:56 Dose: 30 ml Documented by: [id number] Celecoxib (Celebrex 200 Mg Cap) 200 mg PO PREOP MUNDO Stop: 05/14/20 18:00 Last Admin: 05/14/20 08:50 Dose: 200 mg Documented by: [id number] Gabapentin (Gabapentin 300 Mg Cap) 300 mg PO PREOP MUNDO Stop: 05/14/20 18:00 Last Admin: 05/14/20 08:50 Dose: 300 mg Documented by: [id number] Hydromorphone HCl (Hydromorphone Inj 1 Mg/Ml Syringe) 0.25 mg IV Q5M PRN PRN Reason: PACU Use Only-Pain Stop: 05/14/20 18:10 Last Admin: 05/14/20 13:47 Dose: 0.25 mg Documented by: [id number] Admin: 05/14/20 13:42 Dose: 0.25 mg Documented by: [id number] Admin: 05/14/20 13:37 Dose: 0.25 mg Documented by: [id number] Admin: 05/14/20 13:32 Dose: 0.25 mg Documented by: [id number] Cefazolin Sodium (Ancef 2000mg) 2,000 mg in 15 mls @ 3.75 mls/min IV PREOP MUNDO; Protocol Stop: 05/14/20 18:00 Last Admin: 05/14/20 10:53 Dose: 3.75 mls/min Documented by: [id number] Lactated Ringer's (Lr) 1,000 mls @ 15 mls/hr IV .Q24H [facility] Stop: 05/15/20 05:59 Last Infusion: 05/14/20 10:53 Dose: 0 mls/hr Documented by: [id number] Admin: 05/14/20 08:50 Dose: 15 mls/hr Documented by: [id number] Sodium Chloride (Nss 1000ml) 1,000 mls @ 150 mls/hr IV .Q6H40M MUNDO Stop: 06/13/20 14:33 Last Admin: 05/15/20 05:17 Dose: Not Given Documented by: [id number] Infusion: 05/15/20 04:38 Dose: 0 mls/hr Documented by: [id number] Admin: 05/14/20 21:57 Dose: 150 mls/hr Documented by: [id number] Infusion: 05/14/20 21:23 Dose: 150 mls/hr Documented by: [id number] Admin: 05/14/20 14:42 Dose: 150 mls/hr Documented by: [id number] Cefazolin Sodium (Ancef 2000mg) 2,000 mg in 15 mls @ 3.75 mls/min IV Q8H [facility]; Protocol Stop: 05/15/20 02:48 Last Admin: 05/15/20 02:23 Dose: 3.75 mls/min Documented by: [id number] Admin: 05/14/20 17:36 Dose: 3.75 mls/min Documented by: [id number] Insulin Human NPH (Novolin-N (Nph) Per Unit Charge) 25 units SQ ONE ONE; Protocol Stop: 05/14/20 15:01 Last Admin: 05/14/20 16:02 Dose: 25 units Documented by: [id number] Cosigned by: [id number] Miscellaneous ( Floseal Hemostatic Matrix 10ml) 30 ml TOP ONCE ONE Stop: 05/14/20 11:46 Last Admin: 05/14/20 12:56 Dose: 24 ml Documented by: [id number]
[2020-05-15] MEDS ORDERED: GLIPIZIDE PO SCH (09:00)
[2020-05-15] MEDS ORDERED: LANTUS PER UNIT CHARGE SQ ONE (09:00)
[2020-05-15] MEDS ORDERED: FUROSEMIDE 20 MG TAB PO SCH (09:00)
--- NOTE | 2020-05-15 09:20 | Pharmacy Report ---
Pharmacy Glycemic Short Note 2 - Date of Service May 15, 2020 - Glycemic Short BSG Results (Last 24 hours): 05/14/20 05/14/20 05/14/20 13:26 16:52 20:32 Glucose POC Glucose 164 H 192 H 263 H 05/15/20 05/15/20 06:47 08:07 Glucose 224 H POC Glucose 212 H OUTPATIENT ANTIDIABETIC REGIMEN: * Metformin 1000 mg PO BIDM + Glipizide 7.5 mg PO qAM * A1c = 7.0% (05/15/2020) ASSESSMENT: 05/15: * Sushant received 32 units of insulin postoperatively yesterday * 25 units NPH + 17 units bolus * BSGs postop were: 164-192-263 mg/dL * Fasting BSG this AM was uncontrolled at 212 mg/dL * NPH dose did not seem to help with preoperative steroid administration. Will give him a one time dose of Lantus 15 units this AM. Expecting steroids to wear off today which should help to improve post-prandial BSGs * Lunchtime BSG was 204 mg/dL, very slightly improved. Patient has been started on 8 mg of IV dexamethasone daily starting tomorrow morning. I have tightened his Novolog parameters to reflect a weight/stress of 3. I will also add a Lantus scale for this evening to try and get ahead of dexamethasone dose tomorrow morning. 05/14: * 74 yo M admitted s/p T10-T12 decompression and fusion. Pharmacy is consulted for inpatient glycemic management. No HbA1c on file for patient. I have ordered one for tomorrow morning to assess his outpatient control of T2DM on Metformin and Glipizide. * Preoperative BSG was 150 mg/dL. Postoperative BSG was 164 mg/dL. * Patient did receive a one time dose of dexamethasone intra-operative. This will likely cause post-prandial hyperglycemia over the next 24 hours. * Will give a one time dose of NPH 25 units right now (0.25 units/kg) * Will start patient on Novolog based on a weight and stress of 2. PLAN FOR INPATIENT GLYCEMIC CONTROL: * Hold outpatient oral diabetes medications * Basal insulin - increased * Lantus 15 units SQ x 1 * Lantus 20-30 units SQ HS (see eMAR for more details) * Bolus insulin - tightened * NovoLog per scale ACHS or Q6hrs while NPO * Goal Range: Low 110 mg/dL - High 140 mg/dL * Correction Factor: 15 mg/dL/unit * Nutritional / Prandial insulin per carb ratio of 1 unit per 5 grams CHO consumed PLAN FOR DISCHARGE: * HbA1c from this morning was 7.0% representing good outpatient control of T2DM on Metformin + Glipizide. * Recommend continuing home regimen upon patient discharge.
[2020-05-15] MEDS: INSULIN ASPART 100 UNITS/ML 3 ML PEN SC SCH ×4 (09:29→21:13)
--- NOTE | 2020-05-15 12:31 | Orthopedic Progress Note ---
Date of Service May 15, 2020 Assessment & Plan (1) Myelopathy concurrent with and due to spinal stenosis of thoracic region: Admission and Anticipated Discharge Date Admission Date: May 14, 2020 This time we will continue physical therapy monitor his progress anticipate possible discharge home tomorrow with home health. Subjective Back pain controlled leg symptoms are markedly improved Physical Exam Physical Exam: Patient is in the chair at the bedside is good strength testing. Appears comfortable. Results & Data ([facility]) Vital Signs (Past 12 Hours) Vital Signs Temp Pulse Resp BP Pulse Ox 05/15/20 11:50 36.8 C 98 H 18 97 05/15/20 07:19 37.1 C 76 18 106/71 98 05/15/20 04:21 37.3 C 83 20 98/64 L 94
[2020-05-15] MEDS: DOCUSATE SODIUM/SENNA 50/8.6MG TAB PO SCH (20:46)
[2020-05-15] MEDS: MONTELUKAST SODIUM 10 MG TABLET PO SCH (20:46)
[2020-05-15] MEDS: ATORVASTATIN 10 MG TAB PO SCH (20:46)
[2020-05-15] MEDS: GABAPENTIN 300 MG CAP PO SCH (20:47)
[2020-05-15] MEDS ORDERED: INSULIN GLARGINE SOLOSTAR 100 UNITS/ML 3 ML PEN SC SCH (21:00)
[2020-05-16] MEDS: oxyCODONE HCL IR 5 MG TAB (IMMEDIATE RELEASE) PO PRN ×3 (00:43→15:13)
[2020-05-16] MEDS: POLYETHYLENE (MIRALAX) 17 GM PACK PO SCH ×3 (00:43→11:48)
[2020-05-16] MEDS: INSULIN ASPART 100 UNITS/ML 3 ML PEN SC SCH ×4 (00:49→12:44)
[2020-05-16 07:35] LABS: Hematocrit (blood only) 39.9 % (42-52); Hemoglobin 13.6 g/dL (14.0-18.0); Mean Corpuscular Hemoglobin 32.5 pg (25-34); Mean Corpuscular Hgb Conc 34.1 g/dL (32-36); Mean Corpuscular Volume 95.5 fL (80-100); Platelet Count 193 K/uL (130-400); RDW Coefficient of Variation 13.3 % (11.5-14.5); Red Blood Count 4.18 M/uL (4.7-6.1); White Blood Count 14.93 K/uL (4.8-10.8)
[2020-05-16] MEDS: lisinopril 2.5 MG TAB PO SCH (07:36)
[2020-05-16] MEDS: LORATADINE 10 MG TAB PO SCH (07:37)
[2020-05-16] MEDS: MULTIVITAMIN TAB PO SCH (07:37)
[2020-05-16] MEDS: CALCIUM 600MG + VIT D 400 IU TAB PO SCH (07:37)
[2020-05-16] MEDS: FINASTERIDE 5 MG TAB PO SCH (07:37)
[2020-05-16] MEDS: TAMSULOSIN HCL 0.4 MG CAP PO SCH (07:37)
[2020-05-16] MEDS: ASCORBIC ACID 500 MG TAB PO SCH (07:37)
[2020-05-16] MEDS: METOPROLOL SUCC 50MG EXT REL TAB PO SCH (07:38)
[2020-05-16] MEDS: AMIODARONE 200 MG TAB PO SCH (07:38)
[2020-05-16 08:11] LABS: BUN Creatinine Ratio 19.7 (10-20); Calcium 8.9 mg/dl (8.5-10.1); Creatinine Clr Calc Pharmacy 67.1 ml/min; Est GFR (African American) 71.3; Est GFR (Non-African American) 61.5; Potassium 3.6 mmol/L (3.5-5.1)
--- NOTE | 2020-05-16 08:23 | Pharmacy Report ---
Pharmacy Glycemic Short Note 2 - Date of Service May 16, 2020 - Glycemic Short BSG Results (Last 24 hours): 05/15/20 05/15/20 05/15/20 11:57 17:23 20:58 Glucose POC Glucose 204 H 167 H 177 H 05/16/20 05/16/20 05/16/20 00:35 04:37 07:00 Glucose POC Glucose 181 H 147 H 135 H 05/16/20 07:01 Glucose 130 H POC Glucose OUTPATIENT ANTIDIABETIC REGIMEN: * Metformin 1000 mg PO BIDM + Glipizide 7.5 mg PO qAM * A1c = 7.0% (05/15/2020) ASSESSMENT: 05/16: * Patient received 80 units of insulin yesterday * 40 units basal + 40 units bolus * BSGs were [phone] mg/dL * Fasting BSG this AM was 135 mg/dL - controlled * This reflects the increase in basal insulin dose from yesterday. Patient did receive first dose of scheduled dexamethasone this morning so will liliana nd BSGs throughout the day to determine if a change in basal insulin is required. * Will continue with current novolog parameters. 05/15: * Sushant received 32 units of insulin postoperatively yesterday * 25 units NPH + 17 units bolus * BSGs postop were: 164-192-263 mg/dL * Fasting BSG this AM was uncontrolled at 212 mg/dL * NPH dose did not seem to help with preoperative steroid administration. Will give him a one time dose of Lantus 15 units this AM. Expecting steroids to wear off today which should help to improve post-prandial BSGs * Lunchtime BSG was 204 mg/dL, very slightly improved. Patient has been started on 8 mg of IV dexamethasone daily starting tomorrow morning. I have tightened his Novolog parameters to reflect a weight/stress of 3. I will also add a Lantus scale for this evening to try and get ahead of dexamethasone dose tomorrow morning. 05/14: * 74 yo M admitted s/p T10-T12 decompression and fusion. Pharmacy is consulted for inpatient glycemic management. No HbA1c on file for patient. I have ordered one for tomorrow morning to assess his outpatient control of T2DM on Metformin and Glipizide. * Preoperative BSG was 150 mg/dL. Postoperative BSG was 164 mg/dL. * Patient did receive a one time dose of dexamethasone intra-operative. This will likely cause post-prandial hyperglycemia over the next 24 hours. * Will give a one time dose of NPH 25 units right now (0.25 units/kg) * Will start patient on Novolog based on a weight and stress of 2. PLAN FOR INPATIENT GLYCEMIC CONTROL: * Hold outpatient oral diabetes medications * Basal insulin - no changed * Lantus 20-30 units SC BID per scale (see eMAR for more details) * Bolus insulin - * NovoLog per scale ACHS or Q6hrs while NPO * Goal Range: Low 110 mg/dL - High 140 mg/dL * Correction Factor: 15 mg/dL/unit * Nutritional / Prandial insulin per carb ratio of 1 unit per 5 grams CHO consumed PLAN FOR DISCHARGE: * HbA1c from this morning was 7.0% representing good outpatient control of T2DM on Metformin + Glipizide. * Recommend continuing home regimen upon patient discharge.
--- NOTE | 2020-05-16 08:39 | Discharge Summary ---
Date of Service May 16, 2020 Admission HPI Per Admitting Provider This is a 74-year-old male who presents with thoracic spinal stenosis and myelopathy. After failing course of nonoperative care is here for surgical intervention. Principal Diagnosis Thoracic spinal stenosis with myelopathy Discharge Data Allergies Allergy/AdvReac Type Severity Reaction Status Date / Time No Known Allergies Allergy Verified 05/14/20 08:35 Consultations 05/14/20 14:34 Consult Case Management - Discharge Planning Routine Consult Hospitalist Routine Procedures Performed Operation Date: 05/14/20 09:35 Actual Procedures p T10-T12 Decompression Fusion, Spinal Cord Monitoring - Ja Mitchell DO s L1 Removal of Screws - Ja Mitchell DO Ordered Studies 05/14/20 07:00 FL fluoroscopy <1hr Routine FL thoracic spine 2V Routine Hospital Course (1) Myelopathy concurrent with and due to spinal stenosis of thoracic region: Patient underwent thoracic decompression fusion tolerated so was taken to orthopedic for possibly. Postop day 1 is up and ambulating marked improvement of his symptoms. Progressed to postop #2 subsequently discharged home with home health. He we will maintain his drain and have that pulled by his nurse at home or Thursday. Discharge orders instructions from the chart for further review. Total Time Total Time Spent Total Time Spent (In Minutes): 20 minutes Discharge Plan Discharge Items Patient Disposition: Home - Home Health Services Reason For Visit: Other Spondylosis with Myelopathy, [facility] Discharge Diagnosis: Thoracic spinal stenosis with myelopathy Activity: As commented below Non-emergency contact: Primary Care Provider Call non-emergency contact if: you have any medication questions Follow-up/Referrals: Marysol Ramos PA-C [Primary Care Provider] - Diet: Regular Addtl Attending Provider Instructions: ACTIVITY RECOMMENDATIONS: SELF CARE INSTRUCTIONS AFTER THORACIC/LUMBAR FUSIONS 1. You may walk to your tolerance. It is good exercise for your legs and back. Expect some back and intermittent leg aches and pains. 2. You may perform "counter-top" level activities (make a sandwich, alfredo with a project, etc.). 3. No bending or lifting of more than 10 pounds or back twisting of any nature (roll like a log when turning in bed). 4. You may ride in a car for 20-30 minutes at a time. No driving until after your first visit with your doctor. 5. Frequent changes of position and restricting sitting to 30 minutes at a time will help limit the amount of back spasms and stiffness you may experience. 6. You may discontinue the use of ambulatory aids (cane, crutches, etc.) once your strength and confidence allow. 7. 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 Do not take a tub bath, sit in a hot tub or go into a swimming pool until after your first recheck in the office. SPECIAL CARE INSTRUCTIONS: VERY IMPORTANT TO READ AND REVIEW A. Your surgical incision has been closed with a cosmetic suture under the skin that will dissolve in about 6 weeks. In 14 days, you can use a pair of clean scissors and cut the suture that is left outside of the skin at the ends of your incision. 1. The small skin tapes can be removed 7 days after surgery if they have not fallen off by that point. 2. You may keep the wound open to air as much as possible to promote healing after post-op day number 5 unless told otherwise by your doctor. 3. If you think the wound looks like it is becoming infected (redness or worsening drainage) and/or you are experiencing fever, chill or worsening back pain and muscle spasms, contact the office so that we may evaluate you as soon as possible. B. Complications are uncommon, but please contact us if you have any signs or symptoms of: 1. wound infection (fever higher than 102.5 degrees F, redness, separation of wound, drainage, or increasing pain from the incision) 2. blood clots in legs (pain, swelling, redness and warmth in legs) 3. urinary tract infection (fever higher than 102.5 degrees F, burning upon urination or increased frequency of urination) 4. nerve problems (inability to walk on your toes or heels, numbness, loss of bowel or bladder control) 5. any other symptoms that concern you C. Please call the office at if you have any concerns or questions about your operation or recovery. D. No smoking! Smoking drastically decreases the chance of a solid fusion. E. Do not take any anti-inflammatory medications (Indocin, Advil, Motrin, Aspirin, Naprosyn, etc.) as these may inhibit the chance of a solid fusion. Tylenol is okay to take for pain. MANAGING PAIN AFTER SPINAL SURGERY 1. Narcotic medication is intended for short-term use and will be provided for surgical pain. Surgical pain usually lasts for a period of 4-6 weeks. Narcotic medication includes Percocet, Vicodin, Darvocet, Tylenol #3 or Lortab. 2. Longer-term pain is more appropriately treated with non-narcotic medication such as Tylenol ES. 3. Muscle spasm is not appropriately treated with narcotics. Muscle relaxers such as Soma, Flexeril or Skelaxin can be used along with Tylenol ES. 4. Remember that we all live with some "aches and pains". This is not unusual or uncommon after an injury or as we get older. a. Back pain is expected and may include muscle spasms for 4 to 6 weeks after surgery. The pain should gradually improve. If the pain worsens for no apparent reason, please contact the office. b. Intermittent leg pain may also be experienced and should not be concerned about unless it worsens for no apparent reason. If so, please contact the office. 5. We will provide appropriate medication within the normal guidelines of their prescribed use. We will also be very cautious and aware of potential abuse and extended duration of patients' medication needs. a. Pain medications are for your comfort and to assist with sleep and rest so that the tissue can heal. They are not provided in order to return to normal activity and should not be used through the day. To do so or worsening pain at night can result from ongoing tissue damage and development of tolerance to the prescribed medicine. 6. Please allow 2-3 days to process refills. Prescriptions will not be mailed but must be picked up at the office. FOLLOW UP VISIT: Keep your scheduled follow-up appointment. Any questions, please call the office at . Pending Studies at Discharge: No Stand-Alone Forms: My [employer], Smoking Cessation Medications and [place] Order Prescriptions: New tramadol 50 mg tablet 50 mg PO Q6H PRN (Reason: pain, moderate) Qty: 20 RF: 0 oxycodone 5 mg tablet 5 mg PO Q6H PRN (Reason: pain, severe) Qty: 20 RF: 0 Continued metformin 500 mg Tablet 1,000 mg PO BID RF: 0 atorvastatin 10 mg Tablet 10 mg PO HS RF: 0 amiodarone 200 mg Tablet 200 mg PO BID RF: 0 metoprolol succinate 50 mg Tablet Extended Release 24 Hr 50 mg PO QAM RF: 0 glipizide 5 mg Tablet Extended Release 24hr 7.5 mg PO QAM RF: 0 tamsulosin 0.4 mg Capsule 0.4 mg PO QAM RF: 0 baclofen 10 mg Tablet 10 mg PO DAILY PRN (Reason: Spasms) RF: 0 gabapentin 300 mg Capsule 300 mg PO HS RF: 0 montelukast [Singulair] 10 mg Tablet 10 mg PO PM RF: 0 furosemide 20 mg Tablet 20 mg PO QAM RF: 0 lisinopril 2.5 mg Tablet 2.5 mg PO QAM RF: 0 finasteride 5 mg Tablet 5 mg PO QAM RF: 0 loratadine 10 mg Tablet 10 mg PO QAM RF: 0 Eliquis 5 mg Tablet 5 mg PO BID RF: 0 multivitamin Tablet 1 tab PO QAM RF: 0 ascorbic acid (vitamin C) [Vitamin C] 1,000 mg Tablet 1 g PO BID RF: 0 calcium carbonate-vitamin D3 [Calcium + D] 600 mg(1,500mg) -200 unit Tablet 1 tab PO BID RF: 0 omega 0-zsl-abr-fish oil [Fish Oil] 1,000 mg (120 mg-180 mg) Capsule 1 cap PO BID RF: 0 Discharge Orders: Discharge Order (Routine); Ordered 05/16/20 Ordered By: Ja Pike/Other Patient Handouts: High Blood Sugar (Hyperglycemia), Managing Type 2 Diabetes Admission Data Admit Date/Time: 05/14/20 13:34 Attending Provider: Ja Mitchell Admit Provider: Ja Mitchell Primary Care Provider: Marysol Ramos Other Providers: Isrrael Crawford ; Yasir Cole ; Jennifer Streeter I.
[2020-05-16] MEDS ORDERED: DEXAMETHASONE SOD PHOSPHATE 8 MG in SYRINGE 0 ML IV SCH (09:00)
[2020-05-16] MEDS ORDERED: INSULIN GLARGINE SOLOSTAR 100 UNITS/ML 3 ML PEN SC ONE (13:45)
--- NOTE | 2020-05-16 14:22 | Hospitalist Progress Note ---
Date of Service May 16, 2020 Assessment & Plan (1) Myelopathy concurrent with and due to spinal stenosis of thoracic region: Status post T10-[address] Mitchell on 05/14/20 EBL 300 mL, JOE drain to 560 mL Pain/wound management per Ortho Activity and therapy as directed by Ortho Hb stable Planned for discharge today by Primary ortho team with home services (2) Anemia: Hb stable in 13s post op Preoperative 16 on 04/09/20 Likely dilutional component as well as acute blood loss (3) Atrial fibrillation: H/o cardioversion Continue amiodarone Can resume eliquis once hemostasis optimal per Primary Ortho team (4) Diabetes mellitus, type 2: A1C 7.0 Continue home antidiabetic on discharge (5) Hypertension: Continue home antihypertensives on discharge. Follow up with PCP (6) Hyperlipidemia: Continue statin (7) BPH (benign prostatic hyperplasia): Continue finasteride and Flomax (8) DVT prophylaxis: SCD/teds Admission and Anticipated Discharge Date Admission Date: May 14, 2020 Subjective Patient seen and examined Denied any complaints Physical Exam Constitutional: + well hydrated; no acute distress Eyes: PERRL, conjunctivae normal, anicteric sclerae ENMT: external ear and nose normal, oropharynx normal Respiratory: normal respiratory effort, lungs clear to auscultation Cardiovascular: Rate/Rhythm: regular rate and regular rhythm S1 S2 Gastrointestinal (Abdomen): normal bowel sounds, soft, nontender, no hepatosplenomegaly Musculoskeletal: Clean dressing over surgical site with JOE drain in situ Neurologic: PERRL, EOMI, accommodation nl, no face palsy, no dysarthria Psychiatric: A+Ox3, euthymic affect Results & Data Results & Data ([facility]) Vital Signs (Past 12 Hours) Vital Signs Temp Pulse Pulse Resp BP BP Pulse Ox 05/16/20 10:47 36.6 C 61 56 L 20 132/75 103/70 99 05/16/20 10:30 36.6 C 61 56 L 20 132/75 103/70 99 05/16/20 07:04 36.6 C 56 L 20 132/75 99 Laboratory Results Laboratory Results - last 24 hr 05/14/20 05/15/20 05/15/20 08:24 17:23 20:58 WBC RBC Hgb Hct MCV MCH MCHC RDW Std Deviation RDW Coeff of Jessie Plt Count MPV Sodium Potassium Chloride Carbon Dioxide Anion Gap BUN Creatinine Est Cr Clr Drug Dosing Est GFR ( Amer) Est GFR (Non-Af Amer) BUN/Creatinine Ratio Glucose POC Glucose 167 H 177 H Calcium Crossmatch See Detail 05/16/20 05/16/20 05/16/20 00:35 04:37 07:00 WBC RBC Hgb Hct MCV MCH MCHC RDW Std Deviation RDW Coeff of Jessie Plt Count MPV Sodium Potassium Chloride Carbon Dioxide Anion Gap BUN Creatinine Est Cr Clr Drug Dosing Est GFR ( Amer) Est GFR (Non-Af Amer) BUN/Creatinine Ratio Glucose POC Glucose 181 H 147 H 135 H Calcium Crossmatch 05/16/20 05/16/20 05/16/20 07:01 07:01 12:23 WBC 14.93 H RBC 4.18 L Hgb 13.6 L Hct 39.9 L MCV 95.5 MCH 32.5 MCHC 34.1 RDW Std Deviation 46.0 RDW Coeff of Jessie 13.3 Plt Count 193 MPV 11.0 H Sodium 137 Potassium 3.6 D Chloride 104 Carbon Dioxide 29 Anion Gap 4.0 BUN 23 H Creatinine 1.17 Est Cr Clr Drug Dosing 67.1 Est GFR ( Amer) 71.3 Est GFR (Non-Af Amer) 61.5 BUN/Creatinine Ratio 19.7 Glucose 130 H POC Glucose 265 H Calcium 8.9 Crossmatch
[2020-05-16] MEDS ORDERED: INSULIN GLARGINE SOLOSTAR 100 UNITS/ML 3 ML PEN SC SCH (21:00)
== END 2020-05-16 16:16 | disposition home health service (06) | DRG 460 ==
LOC: ASU 07:54 → 3E 13:34